=== PATIENT | male | born 1990 | race American Indian/Alaskan Native ===

== ENCOUNTER 2016-06-10 09:33 | Emergency (ER) | payer MEDICARE, MEDICAID ==
[2016-06-10 09:43] VITALS: RESP 18
[2016-06-10] MEDS ORDERED: Alum-Mag Hydrox-Simethicone Susp (30 mL) PO STA (09:55)
[2016-06-10 10:30] LABS: ADD MANUAL DIFF? NO
--- NOTE | 2016-06-10 10:44 | ED PDOC ---
Arrival/HPI - General Chief Complaint: Abdominal Pain Time Seen by Provider: 06/10/16 09:54 Historian: Patient - History of Present Illness Narrative History of Present Illness (Text): 06/10/16 10:45 26 year old male patient who denies having any past medical history or past surgical history reports to emergency department complaining of intermittent epigastric pain for the last week. He notes that the pain does not radiate to other regions, but usually worsens when he's laying down and trying to sleep. He also claims that the pain tends to decrease after drinking club soda. Patient reports that his diet includes fatty and spicy foods. He states that his urinations and bowel movements are normal, and denies any nausea, vomiting, chest pain, calf swelling, or shortness of breath. No recent travels or prolonged immobilization. No other complaints at this time. He denies recent viral illness, cough, cold, or uri complaints. PMD: Dr. Parekh Time/Duration: < week Symptom Onset: Gradual Symptom Course: Unchanged Modifying Factors (Text): Worsens when lying down, before going to sleep. Improved when drinking club soda. Past Medical History - Provider Review Nursing Documentation Reviewed: Yes - Cardiac Hx Cardiac Disorders: No - Pulmonary Hx Respiratory Disorders: No - Neurological Hx Neurological Disorder: Yes Other/Comment: NEUROBLASTOMA - HEENT Hx HEENT Disorder: No - Renal Hx Renal Disorder: No - Hematological/Oncological Hx Cancer: Yes - Integumentary Hx Dermatological Disorder: No - Gastrointestinal Hx Gastrointestinal Disorders: No - Genitourinary/Gynecological Hx Genitourinary Disorders: No - Psychiatric Hx Psychophysiologic Disorder: No Hx Substance Use: No Family/Social History - Physician Review Nursing Documentation Reviewed: Yes Family/Social History: Unknown Family HX Smoking Status: Never Smoked Hx Alcohol Use: Yes Frequency of alcohol use: Socially Hx Substance Use: No Allergies/Home Meds Allergies/Adverse Reactions: Allergies No Known Allergies Allergy (Verified 06/10/16 09:38) Home Medications: Home Meds Medication Instructions Recorded Confirmed No Known Home Med 06/10/16 06/10/16 Review of Systems - Review of Systems Constitutional: absent: Weight Change Eyes: absent: Vision Changes ENT: absent: Hearing Changes Respiratory: absent: SOB, Cough, Sputum, Wheezing Cardiovascular: absent: Chest Pain, Palpitations, Edema, Calf Pain, YOON, Orthopnea, Syncope Gastrointestinal: absent: Abdominal Pain, Stool Changes, Constipation, Diarrhea , Nausea, Vomiting Genitourinary Male: absent: Dysuria, Hematuria Musculoskeletal: absent: Arthralgias, Neck Pain Skin: absent: Rash Neurological: absent: Headache Endocrine: absent: Diaphoresis Hemo/Lymphatic: absent: Adenopathy Psychiatric: absent: Depression Physical Exam Vital Signs Temp Pulse Resp BP Pulse Ox 06/10/16 12:22 66 18 117/65 98 06/10/16 11:19 97.8 F 86 18 136/86 97 06/10/16 09:38 97.2 F L 99 H 18 138/93 H 99 Temperature: Afebrile Blood Pressure: Normal Pulse: Regular Respiratory Rate: Normal Appearance: Positive for: Well-Appearing, Non-Toxic Pain Distress: Mild Mental Status: Positive for: Alert and Oriented X 3 - Systems Exam Head: Present: Atraumatic, Normocephalic Pupils: Present: PERRL Extroacular Muscles: Present: EOMI Conjunctiva: Present: Normal Mouth: Present: Moist Mucous Membranes Neck: Present: Normal Range of Motion Respiratory/Chest: Present: Clear to Auscultation, Good Air Exchange. No: Respiratory Distress, Accessory Muscle Use Cardiovascular: Present: Regular Rate and Rhythm, Normal S1, S2. No: Murmurs Abdomen: Present: Normal Bowel Sounds. No: Tenderness, Distention, Peritoneal Signs Upper Extremity: Present: Normal Inspection. No: Cyanosis, Edema Lower Extremity: Present: Normal Inspection. No: Edema Neurological: Present: GCS=15, CN II-XII Intact, Speech Normal Skin: Present: Warm, Dry, Normal Color. No: Rashes Psychiatric: Present: Alert, Oriented x 3, Normal Insight, Normal Concentration Medical Decision Making ED Course and Treatment: Impression: 26 year old patient presents to emergency department complaining of epigastric pain that started a few days ago. Plan: -- EKG -- Labs Reassess and disposition Progress Notes: I gave the patient dietary instructions, and asked him to follow up with a primary care physician. I also suggested that the patient visits a specialist if pain worsens. Patient has no cardiac risk factors, but EKG was ordered due to epigastric pain. 06/10/16 11:11 EKG shows NSR at 59bpm with early repolarization in V3-V5. EKG is being read as "possible acute pericarditis" but there are not diffuse ST changes and there is no NE depression consistent with pericarditis. Official read is "early repolarization vs pericarditis." Patient denies chest pain and has not had epigastric pain since last night (greater than 12 hours ago). He denies recent illness, cough, cold like symptoms, fever or chills. Trop x 1 is negative. I believe the presentation is more consistent with gerd/pud than pericarditis. Patient is aware and continues to be pain free and fill follow-up with PMD. He understands that he needs to return with any worsening symptoms. - Lab Interpretations Lab Results: 06/10/16 10:20 06/10/16 10:20 Lab Results 06/10/16 10:20: WBC 5.2, RBC 5.04, Hgb 14.3, Hct 41.9 L, MCV 83.1, MCH 28.4, MCHC 34.1, RDW 15.1 H, Plt Count 288, MPV 9.0, Gran % 60.3, Lymph % (Auto) 30.4 , [place] % (Auto) 7.9 H, Eos % (Auto) 1.0 L, Baso % (Auto) 0.4, Gran # 3.14, Lymph # 1.6, [place] # 0.4, Eos # 0.1, Baso # 0.02, Sodium 138, Potassium 3.8, Chloride 100, Carbon Dioxide 26, Anion Gap 16, BUN 14, Creatinine 1.2, Est GFR ( Amer) > 60, Est GFR (Non-Af Amer) > 60, Random Glucose 88, Calcium 9.6, Total Bilirubin 1.3, AST 29, ALT 22, Alkaline Phosphatase 63, Total Creatine Kinase 317 H, CK-MB (CK-2) 1.4, CK-MB (CK-2) % Cancelled, Troponin I < 0.01, Total Protein 8.2, Albumin 4.6, Globulin 3.7, Albumin/Globulin Ratio 1.2, Lipase 47 - EKG Interpretation Interpreted by ED Physician: Yes Type: 12 lead EKG - Medication Orders Current Medication Orders: Discontinued Medications Al Hydrox/Mg Hydrox/Simethicone (Maalox Plus 30 Ml) 30 ml PO STAT STA Stop: 06/10/16 09:56 Last Admin: 06/10/16 10:25 Dose: 30 ML Famotidine (Pepcid) 20 mg IVP STAT STA Stop: 06/10/16 09:56 Last Admin: 06/10/16 10:24 Dose: 20 MG IVP Administration Document 06/10/16 10:24 SF (Rec: 06/10/16 10:24 [id number]) Charges for Administration # of IVP Administrations 1 - Scribe Statement The provider has reviewed the documentation as recorded by the Scribe Temitope Bruno, training with Nile Goodman All medical record entries made by the Scribe were at my direction and personally dictated by me. I have reviewed the chart and agree that the record accurately reflects my personal performance of the history, physical exam, medical decision making, and the department course for this patient. I have also personally directed, reviewed, and agree with the discharge instructions and disposition. Disposition/Present on Arrival - Present on Arrival Any Indicators Present on Arrival: No History of DVT/PE: No History of Uncontrolled Diabetes: No Urinary Catheter: No History of Decub. Ulcer: No History Surgical Site Infection Following: None - Disposition Have Diagnosis and Disposition been Completed?: Yes Diagnosis: Epigastric pain Disposition: HOME/ ROUTINE Disposition Time: 11:32 Patient Plan: Discharge Condition: GOOD Additional Instructions: Follow up with PMD within 2 days for further evaluation of epigastric pain. Return to ED if condition worsens Referrals: Dakota Parekh MD [Primary Care Provider] - Follow up with primary
[2016-06-10 10:45] LABS: BASO # 0.02 K/mm3 (0.0-2.0); BASO % 0.4 % (0.0-3.0); EOS # 0.1 (0.0-0.7); GRAN # 3.14 (1.4-6.5); GRAN % 60.3 % (50.0-68.0); HEMATOCRIT 41.9 % (42.0-52.0); LYMPH # 1.6 (1.2-3.4); LYMPH % 30.4 % (22.0-35.0); MEAN CELL VOLUME 83.1 fL (80.0-105.0); MEAN CORPUSCULAR HEMOGLOBIN 28.4 pg (25.0-35.0); MEAN CORPUSCULAR HGB CONC 34.1 g/dl (31.0-37.0); MONO # 0.4 (0.1-0.6); MONO % 7.9 % (1.0-6.0); PLATELET COUNT 288 10^3/uL (120.0-450.0); RED CELL DISTRIBUTION WIDTH 15.1 % (11.5-14.5); WHITE BLOOD COUNT 5.2 10^3/ul (4.5-11.0)
[2016-06-10 10:48] LABS: ALB/GLOB RATIO 1.2 (1.1-1.8); ALKALINE PHOSPHATASE 63 U/L (38-133); ALT/SGPT 22 U/L (7-56); AST/SGOT 29 U/L (15-59); BILIRUBIN,TOTAL 1.3 mg/dL (0.2-1.3); BLOOD UREA NITROGEN 14 mg/dL (7-21); CALCIUM 9.6 mg/dL (8.4-10.5); CARBON DIOXIDE 26 mmol/L (21-33); CHLORIDE 100 mmol/L (98-107); GFR AFRICAN-AMERICAN > 60; GLUCOSE,RANDOM 88 mg/dL (70-110); LIPASE 47 U/L (23-300); POTASSIUM 3.8 mmol/L (3.6-5.0); SODIUM 138 mmol/L (132-148); TOTAL PROTEIN 8.2 g/dL (5.8-8.3)
[2016-06-10 11:10] LABS: TROPONIN I < 0.01 ng/mL
[2016-06-10 11:20] VITALS: TEMP 97.8
[2016-06-10 12:23] VITALS: BP 117/65; PULSE 66; O2SAT 98
--- NOTE | 2016-06-10 15:33 | CARD ---
APPROVED REPORT EKG Measurement Heart [id number] <Conclusion> Sinus bradycardia with sinus arrhythmia Possible Acute pericarditis Abnormal ECG
--- NOTE | 2016-06-10 15:35 | CARD ---
APPROVED REPORT EKG Measurement Heart [id number] <Conclusion> Normal sinus rhythm with sinus arrhythmia Early repolarization pattern vs pericarditis Abnormal ECG
== END 2016-06-10 12:28 | disposition home or self-care (01) ==
LOC: ED 09:33
DX: R10.13 Epigastric pain (principal)

== ENCOUNTER 2016-08-28 14:00 | Emergency (ER) | payer MEDICAID ==
[2016-08-28 14:51] VITALS: RESP 18; TEMP 98.9; O2SAT 98
[2016-08-28] MEDS ORDERED: Sodium Chloride 0.9% 1,000 ML IV STA (14:52)
--- NOTE | 2016-08-28 14:54 | ED PDOC ---
Arrival/HPI - General Chief Complaint: GI Problem Time Seen by Provider: 08/28/16 14:11 Historian: Patient - History of Present Illness Time/Duration: Other (Last evening) Symptom Onset: Gradual Symptom Course: Improving Severity Level: Mild Activities at Onset: Rest Associated Symptoms (Text): 08/28/16 14:53 Patient complains of nausea beginning last evening. He vomited twice this morning. There is no abdominal pain. No diarrhea. No headache. He ate a meal out at a restaurant last evening and became ill several hours later. No fever or chills. No injury or trauma. He does not appear ill. Past Medical History - Reproductive Currently : No - Cardiac Hx Cardiac Disorders: No - Pulmonary Hx Respiratory Disorders: No - Neurological Hx Neurological Disorder: Yes Other/Comment: NEUROBLASTOMA - HEENT Hx HEENT Disorder: No - Renal Hx Renal Disorder: No - Hematological/Oncological Hx Cancer: Yes - Integumentary Hx Dermatological Disorder: No - Gastrointestinal Hx Gastrointestinal Disorders: No - Genitourinary/Gynecological Hx Genitourinary Disorders: No - Psychiatric Hx Psychophysiologic Disorder: No Hx Substance Use: No Family/Social History - Physician Review Nursing Documentation Reviewed: Yes Family/Social History: Unknown Family HX Smoking Status: Never Smoked Hx Alcohol Use: Yes Frequency of alcohol use: Socially Hx Substance Use: No Allergies/Home Meds Allergies/Adverse Reactions: Allergies No Known Allergies Allergy (Verified 08/28/16 14:30) Review of Systems - Physician Review All systems were reviewed & negative as marked: Yes - Review of Systems Constitutional: Normal ENT: Normal Respiratory: Normal Cardiovascular: Normal Gastrointestinal: Nausea, Vomiting. absent: Abdominal Pain, Constipation, Diarrhea, Anorexia Genitourinary Male: absent: Dysuria, Frequency, Hematuria Neurological: absent: Headache, Dizziness, Focal Weakness Physical Exam Vital Signs Temp Pulse Resp BP Pulse Ox 08/28/16 15:37 89 18 122/69 98 08/28/16 14:40 93 H 18 124/76 98 08/28/16 14:30 98.9 F 93 H 16 124/76 97 Temperature: Afebrile Blood Pressure: Normal Pulse: Regular Respiratory Rate: Normal Appearance: Positive for: Well-Appearing, Non-Toxic, Comfortable Pain Distress: None Mental Status: Positive for: Alert and Oriented X 3 - Systems Exam Head: Present: Atraumatic, Normocephalic Pupils: Present: PERRL Extroacular Muscles: Present: EOMI Conjunctiva: Present: Normal Mouth: Present: Moist Mucous Membranes Pharnyx: No: ERYTHEMA, EXUDATE, TONSILS ENLARGED Neck: Present: Normal Range of Motion Respiratory/Chest: Present: Clear to Auscultation, Good Air Exchange. No: Respiratory Distress, Accessory Muscle Use Cardiovascular: Present: Regular Rate and Rhythm, Normal S1, S2. No: Murmurs Abdomen: Present: Normal Bowel Sounds. No: Tenderness, Distention, Peritoneal Signs, Rebound, Guarding Upper Extremity: Present: Normal Inspection. No: Cyanosis, Edema Lower Extremity: Present: Normal Inspection. No: Edema Neurological: Present: GCS=15, CN II-XII Intact, Speech Normal, Motor Func Grossly Intact, Gait Normal Skin: Present: Warm, Dry, Normal Color. No: Rashes Psychiatric: Present: Alert, Oriented x 3, Normal Insight, Normal Concentration Medical Decision Making ED Course and Treatment: 08/28/16 16:07 Symptoms have improved. Urinalysis is consistent with a UTI, though the patient has no urinary tract symptoms. A urine culture has been obtained. Antibiotics will be held at this point. - Lab Interpretations Lab Results: 08/28/16 15:10 08/28/16 15:10 Lab Results 08/28/16 15:10: Sodium 142, Potassium 3.9, Chloride 105, Carbon Dioxide 26, Anion Gap 15, BUN 23 H, Creatinine 1.1, Est GFR ( Amer) > 60, Est GFR ( Non-Af Amer) > 60, Random Glucose 100, Calcium 9.7, Total Bilirubin 0.6, AST 34 , ALT 23, Alkaline Phosphatase 67, Total Protein 8.0, Albumin 4.4, Globulin 3.6 , Albumin/Globulin Ratio 1.2, Lipase 72 08/28/16 15:10: Urine Color Yellow, Urine Appearance Sl cloudy, Urine pH 7.0, Ur Specific [place] 1.020, Urine Protein 30 H, Urine Glucose (UA) Negative, Urine Ketones Negative, Urine Blood Negative, Urine Nitrate Positive H, Urine Bilirubin Negative, Urine Urobilinogen 2.0 H, Ur Leukocyte Esterase Trace H, Urine RBC Negative, Urine WBC 15 - 20, Ur Epithelial Cells 4 - 5, Urine Bacteria Many 08/28/16 15:10: WBC 8.3 D, RBC 4.77, Hgb 13.4 L, Hct 40.0 L, MCV 83.9, MCH 28.1 , MCHC 33.5, RDW 14.9 H, Plt Count 253, MPV 8.9, Gran % 83.0 H, Lymph % (Auto) 11.5 L, [place] % (Auto) 5.3, Eos % (Auto) 0.0 L, Baso % (Auto) 0.2, Gran # 6.85 H , Lymph # 1.0 L, [place] # 0.4, Eos # 0.0, Baso # 0.02 - Medication Orders Current Medication Orders: Discontinued Medications Sodium Chloride (Sodium Chloride 0.9%) 1,000 mls @ 1,000 mls/hr IV .Q1H STA Stop: 08/28/16 15:51 Last Admin: 08/28/16 15:03 Dose: 1,000 mls/hr Ondansetron HCl (Zofran Inj) 4 mg IVP STAT STA Stop: 08/28/16 14:53 Last Admin: 08/28/16 15:03 Dose: 4 mg Disposition/Present on Arrival - Present on Arrival Any Indicators Present on Arrival: No History of DVT/PE: No History of Uncontrolled Diabetes: No Urinary Catheter: No History of Decub. Ulcer: No History Surgical Site Infection Following: None - Disposition Have Diagnosis and Disposition been Completed?: Yes Diagnosis: Nausea and vomiting in adult Disposition: HOME/ ROUTINE Disposition Time: 16:08 Patient Plan: Discharge Condition: IMPROVED Discharge Instructions (ExitCare): Acute Nausea and Vomiting (ED) Additional Instructions: Waiting for urine culture report. Prescriptions: Ondansetron [Zofran Odt] 4 mg SL Q6 #20 odt Referrals: Dakota Parekh MD [Primary Care Provider] - Follow up with primary
[2016-08-28 15:18] LABS: ADD MANUAL DIFF? NO
[2016-08-28 15:23] LABS: BASO # 0.02 K/mm3 (0.0-2.0); BASO % 0.2 % (0.0-3.0); GRAN # 6.85 (1.4-6.5); LYMPH % 11.5 % (22.0-35.0); MEAN CELL VOLUME 83.9 fL (80.0-105.0); MEAN CORPUSCULAR HEMOGLOBIN 28.1 pg (25.0-35.0); MEAN CORPUSCULAR HGB CONC 33.5 g/dl (31.0-37.0); MEAN PLATELET VOLUME 8.9 fl (7.0-11.0); MONO # 0.4 (0.1-0.6); MONO % 5.3 % (1.0-6.0); PLATELET COUNT 253 10^3/uL (120.0-450.0); RED CELL DISTRIBUTION WIDTH 14.9 % (11.5-14.5); WHITE BLOOD COUNT 8.3 10^3/ul (4.5-11.0)
[2016-08-28 15:28] LABS: URINE BILIRUBIN NEGATIVE (NEGATIVE); URINE BLOOD NEGATIVE (NEGATIVE); URINE GLUCOSE (UA) NEGATIVE (NEGATIVE); URINE KETONE NEGATIVE (NEGATIVE); URINE LEUKOCYTE ESTERASE TRACE Leu/uL (NEGATIVE); URINE PROTEIN 30 mg/dL (<30 mg/dL)
[2016-08-28 15:33] LABS: URINE APPEARANCE SL CLOUDY (CLEAR); URINE COLOR YELLOW (YELLOW)
[2016-08-28 15:38] LABS: ALB/GLOB RATIO 1.2 (1.1-1.8); ALKALINE PHOSPHATASE 67 U/L (38-133); ALT/SGPT 23 U/L (7-56); AST/SGOT 34 U/L (15-59); BILIRUBIN,TOTAL 0.6 mg/dL (0.2-1.3); BLOOD UREA NITROGEN 23 mg/dL (7-21); CALCIUM 9.7 mg/dL (8.4-10.5); CARBON DIOXIDE 26 mmol/L (21-33); CHLORIDE 105 mmol/L (98-107); GFR AFRICAN-AMERICAN > 60; GLUCOSE,RANDOM 100 mg/dL (70-110); LIPASE 72 U/L (23-300); POTASSIUM 3.9 mmol/L (3.6-5.0); SODIUM 142 mmol/L (132-148)
[2016-08-28 15:45] LABS: URINE BACTERIA MANY (NEG); URINE RBC NEGATIVE /hpf (0-2); URINE WBC 15 - 20 /hpf (0-6)
[2016-08-28 17:05] VITALS: BP 121/65; PULSE 79
== END 2016-08-28 17:08 | disposition home or self-care (01) ==
LOC: ED 14:00
DX: R11.2 Nausea with vomiting, unspecified (principal)
CPT/HCPCS: 80053; 81001; 83690; 85025; 87086; 96374; 99283; J2405; J7040

== ENCOUNTER 2017-01-09 13:53 | Emergency (ER) | payer MEDICARE, MEDICAID ==
[2017-01-09] MEDS ORDERED: Ipratropium 0.02% Inhal Soln (0.5 mg/2.5 ml) UD IH STA (14:17)
[2017-01-09 14:24] VITALS: RESP 17; O2SAT 100
--- NOTE | 2017-01-09 15:13 | ED PDOC ---
Arrival/HPI - General Chief Complaint: Chest Pain Time Seen by Provider: 01/09/17 14:16 Historian: Patient - History of Present Illness Narrative History of Present Illness (Text): 01/09/17 15:09 26 year old male with no significant past medical history, presents to the emergency department complaining of left ear pain that began a few days ago along with intermittent chest pain. Patient denies any discharge or fever associated with the left ear pain. Patient reports having intermittent chest pain after eating at night. He describes this pain as a pressure sensation and used Maalox for relief. He denies having chest pain now. Earlier today when eating patient experienced epigastric abdominal pain which has resolved. Patient denies any fever, cough chills, shortness of breath, nausea, vomiting, diarrhea, urinary symptoms, back pain, neck pain, headache, dizziness, or any other complaints. Patient also denies ever smoking. PMD: Quinn Time/Duration: Other (Few days ) Symptom Onset: Gradual Symptom Course: Unchanged (ear pain), Resolved (Epigastric abdominal pain), Intermittent (Chest pain ) Activities at Onset: Light Context: Home Past Medical History - Provider Review Nursing Documentation Reviewed: Yes - Infectious Disease Hx of Infectious Diseases: None - Reproductive Currently : No - Cardiac Hx Cardiac Disorders: No - Pulmonary Hx Respiratory Disorders: No - Neurological Hx Neurological Disorder: Yes Other/Comment: NEUROBLASTOMA - HEENT Hx HEENT Disorder: No - Renal Hx Renal Disorder: No - Hematological/Oncological Hx Cancer: Yes - Integumentary Hx Dermatological Disorder: No - Gastrointestinal Hx Gastrointestinal Disorders: No - Genitourinary/Gynecological Hx Genitourinary Disorders: No - Psychiatric Hx Psychophysiologic Disorder: No Hx Substance Use: No Family/Social History - Physician Review Nursing Documentation Reviewed: Yes Family/Social History: No Known Family HX Smoking Status: Never Smoked Hx Alcohol Use: Yes Hx Substance Use: No Allergies/Home Meds Allergies/Adverse Reactions: Allergies No Known Allergies Allergy (Verified 01/09/17 14:08) Review of Systems - Physician Review All systems were reviewed & negative as marked: Yes - Review of Systems Constitutional: absent: Fevers, Other (Chills) ENT: Other (Left ear pain) Respiratory: absent: Cough Cardiovascular: Chest Pain Gastrointestinal: Abdominal Pain (Earlier today (Patient states resolved) ). absent: Diarrhea, Nausea, Vomiting Musculoskeletal: absent: Back Pain, Neck Pain Neurological: absent: Headache, Dizziness Physical Exam Vital Signs Temp Pulse Resp BP Pulse Ox 01/09/17 16:21 98.3 F 65 17 124/75 100 01/09/17 14:19 98.2 F 66 17 142/84 100 01/09/17 13:59 98.8 F 63 16 142/84 100 Temperature: Afebrile Blood Pressure: Normal Pulse: Regular Respiratory Rate: Normal Appearance: Positive for: Well-Appearing, Non-Toxic, Comfortable Pain Distress: None Mental Status: Positive for: Alert and Oriented X 3 - Systems Exam Head: Present: Atraumatic, Normocephalic Pupils: Present: PERRL Extroacular Muscles: Present: EOMI Conjunctiva: Present: Normal Ears: Present: Normal Mouth: Present: Moist Mucous Membranes Neck: Present: Normal Range of Motion Respiratory/Chest: Present: Clear to Auscultation, Good Air Exchange. No: Respiratory Distress, Accessory Muscle Use Cardiovascular: Present: Regular Rate and Rhythm, Normal S1, S2. No: Murmurs Abdomen: Present: Normal Bowel Sounds. No: Tenderness, Distention, Peritoneal Signs Back: Present: Normal Inspection Upper Extremity: Present: Normal Inspection. No: Cyanosis, Edema Lower Extremity: Present: Normal Inspection. No: Edema Neurological: Present: GCS=15, CN II-XII Intact, Speech Normal Skin: Present: Warm, Dry, Normal Color. No: Rashes Psychiatric: Present: Alert, Oriented x 3, Normal Insight, Normal Concentration Medical Decision Making ED Course and Treatment: 01/09/17 15:09 Impression: 26 year old male presents complaining of left ear pain for a few days associated with intermittent chest pain. Plan: -- Chest Two Views X-Ray -- Atrovent -- Motrin Tab -- Pepcid -- Reassess and disposition Prior Visits: Notes and results from previous visits were reviewed. On 08/28/16 patient came in complaining of nausea that began last evening. Patient vomited twice this morning. Patient was discharged. Progress Notes: CXR : NAD, as read by JORDYN EKG : Sinus calvin at 59 bpm, w/ a few PACs, no acute ST changes, as read by JORDYN. On re-evaluation, patient reports improvement of symptoms. Denies any SOB, CP, or abdominal pain at this time. Diagnostic results d/w the patient. Based on history, exam and diagnostic results, plan will be for outpt management. Pt notified of likely diagnosis of GERD, will place the patient on pepcid and advised to continue maalox. Given instructions on lifestyle modifications for GERD. Advised to follow up with primary care physician in 1-2 days without fail. Advised to take medication as prescribed. Return to the emergency room at any time for any new or worsening symptoms. Patient states he fully agrees with and understands discharge instructions. States that he agrees with the plan and disposition. Verbalized and repeated discharge instructions and plan. I have given the patient opportunity to ask any additional questions. - RAD Interpretation Radiology Orders: 01/09/17 14:16 CHEST TWO VIEWS (PA/LAT) [RAD] Stat - Medication Orders Current Medication Orders: Discontinued Medications Famotidine (Pepcid) 20 mg PO STAT STA Stop: 01/09/17 14:18 Last Admin: 01/09/17 14:27 Dose: 20 mg Ibuprofen (Motrin Tab) 800 mg PO STAT STA Stop: 01/09/17 14:18 Last Admin: 01/09/17 14:26 Dose: 800 mg Ipratropium [place] (Atrovent) 0.5 mg IH STAT STA Stop: 01/09/17 14:18 Last Admin: 01/09/17 14:26 Dose: 0.5 mg - PA / GREASE MONKEY / Resident Statement MD/DO has reviewed & agrees with the documentation as recorded. - Scribe Statement The provider has reviewed the documentation as recorded by the Jose C Lorenzo Provider Scribe Attestation: All medical record entries made by the Shenaibashlyn were at my direction and personally dictated by me. I have reviewed the chart and agree that the record accurately reflects my personal performance of the history, physical exam, medical decision making, and the department course for this patient. I have also personally directed, reviewed, and agree with the discharge instructions and disposition. Disposition/Present on Arrival - Present on Arrival Any Indicators Present on Arrival: No History of DVT/PE: No History of Uncontrolled Diabetes: No Urinary Catheter: No History of Decub. Ulcer: No History Surgical Site Infection Following: None - Disposition Have Diagnosis and Disposition been Completed?: Yes Diagnosis: Chest pain, GERD (gastroesophageal reflux disease) Disposition: HOME/ ROUTINE Disposition Time: 16:15 Patient Plan: Discharge Patient Problems: Current Active Problems Problem Status Onset Chest pain Acute GERD (gastroesophageal reflux disease) Acute Condition: STABLE Discharge Instructions (ExitCare): Chest Pain (ED) Print Language: [place] Additional Instructions: Thank you for letting us take care of you today. You were treated for chest pain , likely GERD. The emergency medical care you received today was directed at your acute symptoms. If you were prescribed any medication, please fill it and take as directed. It may take several days for your symptoms to resolve. Return to the Emergency Department if your symptoms worsen, do not improve, or if you have any other problems. Please contact your doctor in 2 days for re-evaluation and follow up. Bring any paperwork you were given at discharge with you along with any medications you are taking to your follow up visit. Our treatment cannot replace ongoing medical care by a primary care provider (PCP) outside of the emergency department. Thank you for allowing the [facility] team to be part of your care today. Prescriptions: Famotidine [Pepcid] 40 mg PO DAILY #20 tablet Referrals: Dakota Parekh MD [Primary Care Provider] - Follow up with primary Forms: [employer] ([place]azi), WORK NOTE
[2017-01-09 16:22] VITALS: PULSE 65; TEMP 98.3
[2017-01-09 16:40] VITALS: BP 125/75
--- NOTE | 2017-01-09 17:03 | RAD ---
HISTORY: cp COMPARISON: No prior. TECHNIQUE: Chest PA and lateral FINDINGS: LUNGS: No active pulmonary disease. PLEURA: No significant pleural effusion identified. No pneumothorax apparent. CARDIOVASCULAR: Normal. OSSEOUS STRUCTURES: No significant abnormalities. VISUALIZED UPPER ABDOMEN: Normal. OTHER FINDINGS: None. IMPRESSION: No active disease.
--- NOTE | 2017-01-10 16:24 | CARD ---
APPROVED REPORT EKG Measurement Heart [id number] <Conclusion> Sinus bradycardia with premature atrial complexes Otherwise normal ECG
== END 2017-01-09 16:40 | disposition home or self-care (01) ==
LOC: ED 13:53
DX: R07.9 Chest pain, unspecified (principal); K21.9 Gastro-esophageal reflux disease without esophagitis